=== PATIENT | male | born 1950 | race Caucasian/White ===

== ENCOUNTER 2017-06-05 11:15 | Emergency (ER) | payer OTHER ==
[~2017-06-05] VITALS: Ht 177.8 cm; Wt 104.0 kg
[2017-06-05 11:19] VITALS: BP 139/71; PULSE 69; RESP 16; TEMP 97.7; O2SAT 98
--- NOTE | 2017-06-05 11:41 | PD ---
HPI Chief Complaint: Pain: Acute or Chronic Time Seen by Provider: 11:32 Travel History International Travel<30 days: No Contact w/Intl Traveler<30days: No Traveled to known affect area: No History of Present Illness HPI This patient has been having right leg pains for one week. No injury. Located in the calf as well as lower leg and distal thigh. He went to an urgent care center and they advised him to come here to rule out DVT. 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 Takes no blood thinners. No alleviating factors. He has chronic left leg swelling and some ulceration over the bright but that is not changed today. Symptoms severity is moderate. PFSH Past Medical History Chemotherapy: Yes Social History Alcohol Use: No Tobacco Use: No Substance Use: No Allergies-Medications (Allergen,Severity, Reaction): Coded Allergies: No Known Allergies (Unverified , 06/05/17) Reported Meds & Prescriptions Reported Meds & Active Scripts Active Tramadol (Tramadol HCl) 50 Mg Tab 50 Mg PO Q6H PRN Review of Systems General / Constitutional: No: Fever Eyes: No: Visual changes HENT: No: Headaches Cardiovascular: No: Chest Pain or Discomfort Respiratory: No: Shortness of Breath Gastrointestinal: No: Abdominal Pain Genitourinary: No: Dysuria Musculoskeletal: Positive: Myalgias, Edema, Pain Skin: No Rash Neurologic: No: Weakness Psychiatric: No: Depression Endocrine: No: Polydipsia Hematologic/Lymphatic: No: Easy Bruising Physical Exam Narrative GENERAL: Well-nourished, well-developed patient in no apparent distress. SKIN: Focused skin assessment reveals no rash and nodules. Skin is Warm and dry. HEAD: Atraumatic. Normocephalic. EYES: Pupils equal and round. No scleral icterus. No injection or drainage. ENT: No nasal bleeding or discharge. Mucous membranes pink and moist. NECK: Trachea midline. No JVD. CARDIOVASCULAR: Regular rate and rhythm. No murmur appreciated. RESPIRATORY: No accessory muscle use. Clear to auscultation. Breath sounds equal bilaterally. GASTROINTESTINAL: Abdomen soft, non-tender, nondistended. Hepatic and splenic margins not palpable. MUSCULOSKELETAL: No cyanosis. Left lower leg is edematous with some superficial ulceration over the mid tibia. this is chronic per patient. Right leg does not show erythema or warmth. NEUROLOGICAL: Awake and alert. No obvious cranial nerve deficits. Motor grossly within normal limits. Normal speech. PSYCHIATRIC: Appropriate mood and affect; insight and judgment normal. Data Data Last Documented VS Vital Signs Date Time Temp Pulse Resp B/P (MAP) Pulse Ox O2 Delivery O2 Flow Rate FiO2 06/05/17 11:19 97.7 69 16 139/71 (93) 98 Orders Orders Us Leg Venous Doppler Bilat (06/05/17 ) Iv Access Insert/Monitor (06/05/17 11:48) Complete Blood Count With Diff (06/05/17 11:48) Prothrombin Time / Inr (Pt) (06/05/17 11:48) Act Partial Throm Time (Ptt) (06/05/17 11:48) Labs Laboratory Tests Test 06/05/17 12:02 White Blood Count 6.8 TH/MM3 Red Blood Count 3.30 MIL/MM3 Hemoglobin 9.2 GM/DL Hematocrit 28.8 % Mean Corpuscular Volume 87.3 FL Mean Corpuscular Hemoglobin 27.9 PG Mean Corpuscular Hemoglobin Concent 32.0 % Red Cell Distribution Width 28.7 % Platelet Count 276 TH/MM3 Mean Platelet Volume 11.7 FL Neutrophils (%) (Auto) 40.6 % Lymphocytes (%) (Auto) 46.4 % Monocytes (%) (Auto) 10.7 % Eosinophils (%) (Auto) 1.9 % Basophils (%) (Auto) 0.4 % Neutrophils # (Auto) 2.8 TH/MM3 Lymphocytes # (Auto) 3.2 TH/MM3 Monocytes # (Auto) 0.7 TH/MM3 Eosinophils # (Auto) 0.1 TH/MM3 Basophils # (Auto) 0.0 TH/MM3 CBC Comment AUTO DIFF Differential Comment AUTO DIFF CONFIRMED Platelet Estimate NORMAL Platelet Morphology Comment NORMAL Basophilic Stippling MOD Tear Drop Cells 1+ Ovalocytes 1+ Rouleau PRESENT Keratocytes OCC Prothrombin Time 11.0 SEC Prothromb Time International Ratio 1.0 RATIO Activated Partial Thromboplast Time 25.2 SEC MDM Medical Decision Making Medical Screen Exam Complete: Yes Emergency Medical Condition: Yes Medical Record Reviewed: Yes Differential Diagnosis DVT, myalgia, soft tissue injury Narrative Course I have reviewed the patient's electronic medical record. IV placed CBC shows normal platelet count with anemia and normal coagulation studies I reviewed his right leg ultrasound which is negative for DVT I Reviewed his left leg ultrasound which is negative for DVT I wrote him some tramadol The patient was advised to follow up with their physician and return if they worsen. He may Have some degree of soft tissue pain Diagnosis Primary Impression: Pain in right leg Additional Impression: Left leg swelling Additional Instructions: The patient was advised to follow up with their physician and return if they worsen. The patient was warned about potential sedation for the medications they will receive on prescription. Med/Other Pt SpecificInfo: Prescription(s) given Scripts Tramadol (Tramadol) 50 Mg Tab 50 MG PO Q6H Y for PAIN, #15 TAB 0 Refills Prov: Jorge Leal MD 06/05/17 Disposition: 01 DISCHARGE HOME Condition: Stable Jorge Leal MD Jun 05, 2017 11:40
[2017-06-05 12:05] LABS: AUTOMATED NEUTROPHIL # 2.8 TH/MM3 (1.8-7.7); BASOPHIL % 0.4 % (0.0-2.0); EOSINOPHIL # 0.1 TH/MM3 (0-0.4); EOSINOPHIL % 1.9 % (0.0-4.0); HEMATOCRIT 28.8 % (39.0-51.0); LYMPH % 46.4 % (9.0-44.0); LYMPHOCYTE # 3.2 TH/MM3 (1.0-4.8); MEAN CELL VOLUME 87.3 FL (80.0-100.0); MEAN CORPUSCULAR HEMOGLOBIN 27.9 PG (27.0-34.0); MONO % 10.7 % (0.0-8.0); NEUT % 40.6 % (16.0-70.0); PLATELET COUNT 276 TH/MM3 (150-450); RED CELL DISTRIBUTION WIDTH 28.7 % (11.6-17.2); WHITE BLOOD COUNT 6.8 TH/MM3 (4.0-11.0)
[2017-06-05 12:12] LABS: HEMO FLAGS AUTO DIFF
[2017-06-05 12:16] LABS: APTT (PATIENT) 25.2 SEC (24.3-30.1)
[2017-06-05 12:29] LABS: KERATOCYTES OCC (NORMAL); OVALOCYTES 1+ (NORMAL); PLATELET ESTIMATE SMEAR NORMAL (NORMAL); PLATELET MORPHOLOGY NORMAL (NORMAL); ROULEAUX PRESENT (NORMAL); SCAN/DIFF AUTO DIFF CONFIRMED; TEARDROP RBCS 1+ (NORMAL)
--- NOTE | 2017-06-05 13:31 | RADRPT ---
EXAM DATE/TIME: 06/05/2017 12:51 [facility] COMPARISON: No previous studies available for comparison. INDICATIONS : Bilateral leg pain. MEDICAL HISTORY : Deep venous thrombosis. Melenoma. Chemotherapy. 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 ENCOUNTER: Initial ACUITY: 1 week PAIN SCORE: 2/10 LOCATION: Bilateral legs. TECHNIQUE: Venous ultrasound of the left and right leg was performed from the inguinal ligament to the proximal calf. Real-time, color Doppler and spectral tracing, compression and augmentation techniques were us ed. FINDINGS: RIGHT LEG: There is normal compressibility of the deep venous system from the inguinal region to the proximal ca lf. No echogenic clot is seen in the lumen of the common femoral, femoral, popliteal, and posterior tibial veins. There is a normal response of the venous system to proximal and distal augmentation an d respiration. LEFT LEG: There is normal compressibility of the deep venous system from the inguinal region to the proximal ca lf. No echogenic clot is seen in the lumen of the common femoral, femoral, popliteal, and posterior tibial veins. There is a normal response of the venous system to proximal and distal augmentation an d respiration. CONCLUSION: Negative for deep venous thrombosis. Edis Blake MD FACR on June 05, 2017 at 13:28 Board Certified Radiologist. This report was verified electronically.
[2017-06-05] MEDS ORDERED: TRAM50TA PO (13:44)
== END 2017-06-05 14:33 | disposition home or self-care (01) ==
LOC: PHED 11:15
DX: M79.604 Pain in right leg (principal); R22.42 Localized swelling, mass and lump, left lower limb
CPT/HCPCS: 85025; 85610; 85730; 93970